=== PATIENT | female | born 1960 | race Hispanic/Latino ===

== ENCOUNTER 2017-12-20 18:51 | Observation (INO) | payer MEDICARE ==
[2017-12-20] MEDS ORDERED: ASPIRIN PO ONE (19:15)
[2017-12-20 19:56] LABS: Basophils # (Auto) 0.1 K/mm3 (0.0-0.1); Basophils % (Auto) 1.2 % (0.0-1.8); Eosinophils # (Auto) 0.1 K/mm3 (0.0-0.4); Eosinophils % (Auto) 2.1 % (0.0-4.3); Hematocrit 42.4 % (30.3-42.9); Hemoglobin 14.1 gm/dl (10.1-14.3); Lymphocytes # (Auto) 2.3 K/mm3 (1.2-5.4); Lymphocytes % (Auto) 33.1 % (13.4-35.0); Mean Corpuscular HGB Conc 33 % (30-34); Mean Corpuscular Hemoglobin 32 pg (28-32); Mean Corpuscular Volume 96 fl (79-97); Monocytes # (Auto) 0.5 K/mm3 (0.0-0.8); Monocytes % (Auto) 7.3 % (0.0-7.3); Platelet Count 210 K/mm3 (140-440); Red Blood Count 4.44 M/mm3 (3.65-5.03)
[2017-12-20 20:00] LABS: BUN/Creatinine Ratio 8; Blood Urea Nitrogen 6 mg/dL (7-17); Calcium 8.9 mg/dL (8.4-10.2); Hemolysis Index 7
--- NOTE | 2017-12-20 20:40 | XRay Report ---
FINAL REPORT EXAM: XR CHEST ROUTINE 2V HISTORY: chest pain,sob COMPARISON: None available. FINDINGS:: Frontal and lateral views of the chest obtained. Cardiac silhouette is within normal limits. Mild linear atelectasis or scarring left midlung. Remaining lungs are clear. No large consolidation or effusion. No pneumothorax. IMPRESSION:: Mild linear atelectasis or scarring left mid lung. Lungs otherwise clear.
--- NOTE | 2017-12-20 20:54 | Emergency Department Report ---
ED Chest Pain HPI - General Chief Complaint: Chest Pain Stated Complaint: CHEST PAIN Time Seen by Provider: 12/20/17 20:28 Source: patient, EMS Mode of arrival: Wheelchair Limitations: No Limitations - History of Present Illness Initial Comments: Patient is 57-year-old female with history of COPD, hypertension, diabetes, coronary artery disease. Patient presented with left-sided chest pain, tightness and heaviness sensation associated with shortness of breath. Patient denied any fever. Patient denied any nausea or vomiting. MD Complaint: chest pain -: Last night Onset: during rest Pain Location: left chest Severity scale (0 -10): 5 Quality: tightness, heaviness Consistency: constant - Related Data Home Medications Medication Instructions Recorded Confirmed Last Taken Albuterol Sulfate [Ventolin HFA] 2 puff IH 4XD PRN 12/31/14 09/10/15 09/09/15 Ipratropium/Albuterol Sulfate 1 ampul IH Q4HRT PRN 12/31/14 09/10/15 1 Day Ago [DUONEB *Not for PRN Use*] ~01/28/15 1 Aspirin [Aspirin BABY CHEW TAB] 81 mg PO QDAY 08/23/15 09/10/15 09/09/15 Ipratropium [Atrovent NEB] 0.5 mg IH Q4HR PRN 08/23/15 09/10/15 Unknown Previous Rx's Medication Instructions Recorded Last Taken Type Topiramate [Topamax] 100 mg PO QID #120 tablet 12/31/14 09/09/15 Rx Warfarin Sodium [Coumadin] 7.5 mg PO 5XW #60 tablet 12/31/14 09/09/15 Rx Morphine ER [Ms Contin ER] 15 mg PO TID PRN #20 tablet 08/23/15 Unknown Rx Morphine [Morphine TAB] 15 mg PO Q24H PRN #3 tablet 09/10/15 Unknown Rx Allergies Allergy/AdvReac Type Severity Reaction Status Date / Time rosuvastatin calcium Allergy Hives Verified 01/28/15 21:20 [From Crestor] acetaminophen AdvReac Severe BREATHING Verified 01/31/15 00:08 DIFFICULTIES,HIVES,ITCHING amoxicillin trihydrate AdvReac Severe BREATHING Verified 01/31/15 00:08 [From Augmentin] DIFFICULTIES,HIVES,ITCHING aspirin [From Fiorinal] AdvReac Severe BREATHING Verified 01/31/15 00:08 DIFFICULTIES,HIVES,ITCHING bupropion HCl AdvReac Severe BREATHING Verified 01/31/15 00:08 [From Wellbutrin] DIFFICULTIES,HIVES,ITCHING butalbital [From Fiorinal] AdvReac Severe BREATHING Verified 01/31/15 00:08 DIFFICULTIES,HIVES,ITCHING caffeine [From Fiorinal] AdvReac Severe BREATHING Verified 01/31/15 00:08 DIFFICULTIES,HIVES,ITCHING carisoprodol AdvReac Severe BREATHING Verified 01/31/15 00:08 [From Soma Compound] DIFFICULTIES,HIVES,ITCHING celecoxib [From Celebrex] AdvReac Severe BREATHING Verified 01/31/15 00:08 DIFFICULTIES,HIVES,ITCHING ciprofloxacin [From Cipro] AdvReac Severe BREATHING Verified 01/31/15 00:08 DIFFICULTIES,HIVES,ITCHING ciprofloxacin HCl AdvReac Severe BREATHING Verified 01/31/15 00:08 [From Cipro] DIFFICULTIES,HIVES,ITCHING codeine AdvReac Severe BREATHING Verified 01/31/15 00:08 DIFFICULTIES,HIVES,ITCHING cyclobenzaprine HCl AdvReac Severe BREATHING Verified 01/31/15 00:08 [From Flexeril] DIFFICULTIES,HIVES,ITCHING diphenhydramine HCl AdvReac Severe BREATHING Verified 01/31/15 00:08 [From Percogesic] DIFFICULTIES,HIVES,ITCHING doxycycline AdvReac Severe BREATHING Verified 01/31/15 00:08 DIFFICULTIES,HIVES,ITCHING erythromycin base AdvReac Severe BREATHING Verified 01/31/15 00:08 [Erythromycin Base] DIFFICULTIES,HIVES,ITCHING fentanyl AdvReac Severe BREATHING Verified 01/31/15 00:08 DIFFICULTIES,HIVES,ITCHING formoterol fumarate AdvReac Severe BREATHING Verified 01/31/15 00:08 [From Dulera] DIFFICULTIES,HIVES,ITCHING hydrocodone bitartrate AdvReac Severe BREATHING Verified 01/31/15 00:08 [From Vicodin] DIFFICULTIES,HIVES,ITCHING hydromorphone HCl AdvReac Severe BREATHING Verified 01/31/15 00:08 [From Dilaudid] DIFFICULTIES,HIVES,ITCHING ibuprofen AdvReac Severe BREATHING Verified 01/31/15 00:08 DIFFICULTIES,HIVES,ITCHING ketorolac tromethamine AdvReac Severe BREATHING Verified 01/31/15 00:08 [From Toradol] DIFFICULTIES,HIVES,ITCHING meperidine HCl [From Demerol] AdvReac Severe BREATHING Verified 01/31/15 00:08 DIFFICULTIES,HIVES,ITCHING methylprednisolone AdvReac Severe BREATHING Verified 01/31/15 00:08 [From Medrol] DIFFICULTIES,HIVES,ITCHING metronidazole [From Flagyl] AdvReac Severe BREATHING Verified 01/31/15 00:08 DIFFICULTIES,HIVES,ITCHING Metronidazole HCl AdvReac Severe BREATHING Verified 01/31/15 00:08 [From Flagyl] DIFFICULTIES,HIVES,ITCHING mometasone furoate AdvReac Severe BREATHING Verified 01/31/15 00:11 [From Dulera] DIFFICULTIES,HIVES,ITCHING nalbuphine HCl [From Nubain] AdvReac Severe BREATHING Verified 01/31/15 00:11 DIFFICULTIES,HIVES,ITCHING naproxen [From Naprosyn] AdvReac Severe BREATHING Verified 01/31/15 00:08 DIFFICULTIES,HIVES,ITCHING oxycodone HCl [From Percocet] AdvReac Severe BREATHING Verified 01/31/15 00:08 DIFFICULTIES,HIVES,ITCHING oxycodone terephthalate AdvReac Severe BREATHING Verified 01/31/15 00:08 [From Percodan] DIFFICULTIES,HIVES,ITCHING pentazocine lactate AdvReac Severe BREATHING Verified 01/31/15 00:08 [From Talwin] DIFFICULTIES,HIVES,ITCHING phenyltoloxamine citrate AdvReac Severe BREATHING Verified 01/31/15 00:08 [From Percogesic] DIFFICULTIES,HIVES,ITCHING potassium clavulanate AdvReac Severe BREATHING Verified 01/31/15 00:08 [From Augmentin] DIFFICULTIES,HIVES,ITCHING propoxyphene HCl AdvReac Severe BREATHING Verified 01/31/15 00:08 [From Darvon] DIFFICULTIES,HIVES,ITCHING propoxyphene napsylate AdvReac Severe BREATHING Verified 01/31/15 00:08 [From Darvocet-N 100] DIFFICULTIES,HIVES,ITCHING sulfamethoxazole AdvReac Severe BREATHING Verified 01/31/15 00:08 [From Bactrim] DIFFICULTIES,HIVES,ITCHING trimethoprim [From Bactrim] AdvReac Severe BREATHING Verified 01/31/15 00:08 DIFFICULTIES,HIVES,ITCHING Heart Score - HEART Score History: Moderately suspicious EKG: Non-specific Age: 45-65 Risk factors: 1-2 risk factors Troponin: < normal limit HEART Score: 4 - Critical Actions Critical Actions: 4-6 pts:12-16.6% risk of adverse cardiac event. Should be admitted ED Review of Systems ROS: Stated complaint: CHEST PAIN Other details as noted in HPI Comment: All other systems reviewed and negative Constitutional: denies: chills, fever Respiratory: shortness of breath. denies: cough, orthopnea, SOB with exertion, SOB at rest Cardiovascular: chest pain, dyspnea on exertion. denies: palpitations Gastrointestinal: denies: abdominal pain, nausea, vomiting, diarrhea, constipation Genitourinary: denies: urgency, dysuria, frequency Neurological: denies: headache, weakness Psychiatric: denies: depression ED Past Medical Hx - Past Medical History Hx Hypertension: Yes Hx CVA: Yes (tia) Hx Congestive Heart Failure: No Hx Diabetes: Yes Hx Pulmonary Embolism: No Hx Liver Disease: No Hx Renal Disease: No Hx Sickle Cell Disease: No Hx Arthritis: No Hx Seizures: Yes Hx Kidney Stones: No Hx Asthma: Yes Hx COPD: Yes Hx Tuberculosis: No Hx Dementia: No Hx HIV: No Additional medical history: angina - Surgical History Hx Open Heart Surgery: No Hx Cholecystectomy: Yes Hx Appendectomy: No Hx Breast Surgery: No Additional Surgical History: hysterectomy, left arm - Social History Smoking Status: Former Smoker Substance Use Type: None - Medications Home Medications: Home Medications Medication Instructions Recorded Confirmed Last Taken Type Albuterol Sulfate [Ventolin HFA] 2 puff IH 4XD PRN 12/31/14 09/10/15 09/09/15 History Ipratropium/Albuterol Sulfate 1 ampul IH Q4HRT PRN 12/31/14 09/10/15 1 Day Ago History [DUONEB *Not for PRN Use*] ~01/28/15 1 Topiramate [Topamax] 100 mg PO QID #120 tablet 12/31/14 09/10/15 09/09/15 Rx Warfarin Sodium [Coumadin] 7.5 mg PO 5XW #60 tablet 12/31/14 09/10/15 09/09/15 Rx Aspirin [Aspirin BABY CHEW TAB] 81 mg PO QDAY 08/23/15 09/10/15 09/09/15 History Ipratropium [Atrovent NEB] 0.5 mg IH Q4HR PRN 08/23/15 09/10/15 Unknown History Morphine ER [Ms Contin ER] 15 mg PO TID PRN #20 tablet 08/23/15 09/10/15 Unknown Rx Morphine [Morphine TAB] 15 mg PO Q24H PRN #3 tablet 09/10/15 Unknown Rx ED Physical Exam - General Limitations: No Limitations General appearance: alert, in no apparent distress - Head Head exam: Present: atraumatic, normocephalic, normal inspection - Eye Eye exam: Present: normal appearance, PERRL - ENT ENT exam: Present: normal exam, normal orophraynx, mucous membranes moist - Neck Neck exam: Present: normal inspection, full ROM. Absent: tenderness, meningismus, lymphadenopathy - Respiratory Respiratory exam: Present: normal lung sounds bilaterally, decreased breath sounds. Absent: respiratory distress, wheezes, rales, rhonchi, chest wall tenderness, accessory muscle use, prolonged expiratory - Cardiovascular Cardiovascular Exam: Present: regular rate, normal rhythm, normal heart sounds - GI/Abdominal GI/Abdominal exam: Present: soft, normal bowel sounds. Absent: distended, tenderness, guarding, rebound, rigid, organomegaly, mass, bruit, pulsatile mass , hernia - Extremities Exam Extremities exam: Present: normal inspection, full ROM, normal capillary refill - Back Exam Back exam: Present: normal inspection, full ROM. Absent: tenderness, CVA tenderness (R), CVA tenderness (L) - Neurological Exam Neurological exam: Present: alert, oriented X3, CN II-XII intact, normal gait - Skin Skin exam: Present: warm, intact, normal color ED Course Vital Signs 12/20/17 12/20/17 12/20/17 19:11 20:30 20:41 Temperature 99.1 F 99.4 F Pulse Rate 104 H 103 H 100 H Respiratory 20 21 Rate Blood Pressure 154/94 O2 Sat by Pulse 91 Oximetry 12/20/17 12/20/17 20:46 21:00 Temperature Pulse Rate 96 H 98 H Respiratory 24 25 H Rate Blood Pressure 138/81 133/78 O2 Sat by Pulse 92 93 Oximetry MICHELLE score - Michelle Score Age > 65: (0) No Aspirin use within the Past 7 Days: (0) No 3 or more CAD Risk Factors: (1) Yes 2 or more Angina events in past 24 hrs: (0) No Known CAD with more than 50% Stenosis: (0) No Elevated Cardiac Markers: (0) No ST Deviation Greater than 0.5mm: (0) No MICHELLE Score: 1 ED Medical Decision Making - Lab Data Result diagrams: 12/20/17 19:23 12/20/17 19:23 - EKG Data -: EKG Interpreted by Me EKG shows normal: sinus rhythm Rate: tachycardia - EKG Data Interpretation: no acute changes - Radiology Data Radiology results: report reviewed - Medical Decision Making I discussed the patient is Dr. Paul, he agreed to admit the patient to his service. Critical care attestation.: If time is entered above; I have spent that time in minutes in the direct care of this critically ill patient, excluding procedure time. ED Disposition Clinical Impression: Chest pain Disposition: DC-09 OP ADMIT IP TO THIS HOSP Is pt being admited?: Yes Condition: Stable Instructions: Chest Pain (ED)
[2017-12-20] MEDS ORDERED: MORPHINE IV PRN (21:48)
[2017-12-20] MEDS ORDERED: SODIUM CHLORIDE FLUSH SYRINGE 10 ML IV PRN (21:48)
[2017-12-20] MEDS ORDERED: NITROSTAT SL PRN (21:48)
[2017-12-20] MEDS ORDERED: ZOFRAN IV PRN (21:52)
[2017-12-20] MEDS ORDERED: HEPARIN SUB-Q SCH (22:00)
[2017-12-20] MEDS ORDERED: K-DUR PO ONE (22:09)
[2017-12-20 22:41] LABS: BUN/Creatinine Ratio 8; Blood Urea Nitrogen 6 mg/dL (7-17); Calcium 8.7 mg/dL (8.4-10.2); Hemolysis Index 3
[2017-12-20 22:57] LABS: INR 0.79 (0.87-1.13)
--- NOTE | 2017-12-21 01:48 | History and Physical Report ---
CHIEF COMPLAINT: Chest pain. HISTORY OF PRESENT ILLNESS: The patient is a 57-year-old female who started having burning type of chest pain at home that eventually turned into crushing pain involving the precordial and retrosternal area that was associated with shortness of breath, nausea and dizziness. There was no history of fever, no history of cough. The patient called 911 and was told to take aspirin and she said she took 2 tablets of baby aspirin, and subsequently presented to the Emergency Room. PAST MEDICAL HISTORY: Pertinent for COPD, hypertension, diabetes mellitus, coronary artery disease, TIA. Also the patient has seizure. PAST SURGICAL HISTORY: Pertinent for cholecystectomy, hysterectomy, and left arm surgery. FAMILY HISTORY: Pertinent for valvular heart disease in parents. SOCIAL HISTORY: The patient lives with family. Does not smoke, does not drink alcohol and does not use illicit drugs. MEDICATIONS: The patient is on albuterol sulfate 2 puffs inhalation 4 times daily. Also, the patient is on DuoNeb 1 amp every 4 hours as needed for shortness of breath. The patient is on Topamax 100 mg by mouth q.i.d., warfarin 7.5 mg by mouth 5 times a week, aspirin 81 mg daily, ipratropium nebulizer 0.5 mg every 4 hours as needed for shortness of breath, morphine extended release, MS Contin 15 mg by mouth 3 times daily as needed for pain. ALLERGIES: THE PATIENT IS ALLERGIC TO CRESTOR, ACETAMINOPHEN, AMOXICILLIN TRIHYDRATE. REVIEW OF SYSTEMS: CONSTITUTIONAL: There is no fever, no chills, no diaphoresis. HEENT: There is no headache or sore throat. CARDIOVASCULAR: There is chest pain, but no orthopnea. RESPIRATORY: Shortness of breath is present and there is no cough. GASTROINTESTINAL: There is nausea, no vomiting, no abdominal pain, diarrhea or constipation. NEUROLOGIC: There is dizziness, no altered mental status. MUSCULOSKELETAL: There is no joint pain or swelling. DERMATOLOGICAL: There is no skin rash or itching. GENITOURINARY: There is no dysuria, hematuria, or flank pain. Rest of system review is normal. PHYSICAL EXAMINATION: GENERAL: At the time of exam, the patient was found to be alert, oriented x 3 and not in acute distress. VITAL SIGNS: Shows normal temperature with pulse of 96, respirations 24, blood pressure 138/81, O2 sat of 92% on room air. HEENT: Shows pupils to be equal, round, reactive to light and accommodation. Extraocular muscles are intact. NECK: Full with no JVD or carotid bruit. CARDIOVASCULAR: Show normal first and second heart sounds with no gallops or murmur. RESPIRATORY: Shows good air entry on both sides of the lungs with no abnormal breath sounds. GASTROINTESTINAL: Show abdomen to be full, soft, nontender with no organomegaly or rigidity. NEUROLOGICAL: The shows no focal deficits. MUSCULOSKELETAL: Show no joint swelling or tenderness. DERMATOLOGICAL: Shows no skin rash. GENITOURINARY: Show no costovertebral angle tenderness. PERTINENT LABORATORY DATA AND IMAGING STUDIES: The patient had a chest x-ray done that shows mild linear atelectasis or scarring of the left mid lung. Lab results, the patient had following labs done, CBC came back unremarkable. Chemistry shows slight decrease in potassium of 3.5 with unremarkable renal function. Rest of chemistry was unremarkable. Coagulation studies were not done. Cardiac enzyme shows normal troponin levels. DIAGNOSES: 1. Chest pain. 2. Hypokalemia. PLAN: The patient will be admitted to medical floor telemetry using chest pain pathway. The patient will have troponin level checked q. 6 hours x 2 more levels. The patient will remain n.p.o. for Lexiscan nuclear stress test in the morning. The patient will be on nitro paste 1 inch to anterior chest wall t.i.d. and will be on sublingual nitroglycerin for breakthrough chest pain. The patient will be on enteric-coated aspirin 325 mg by mouth daily and the patient will be on IV morphine 2 mg every 5 minutes as needed for pain and also will be on IV Zofran 4 mg every 8 hours as needed for nausea and vomiting. The patient will remain n.p.o. for stress test in the morning and will be on oxygen via nasal cannula per chest pain protocol. The patient was on Coumadin for DVT prophylaxis at this point will be through sequential compressive device ____. JOB# [id number] OCN/NTS
[2017-12-21] MEDS: NITRO-BID 2% TP SCH ×2 (06:15→12:05)
[2017-12-21] MEDS ORDERED: LEXISCAN IV ONE ×2 (08:06→08:14)
--- NOTE | 2017-12-21 08:37 | Discharge Summary ---
Providers - Providers Date of Admission: 12/20/17 21:47 Date of discharge: 12/21/17 Attending physician: AQUILES JUAREZ 12/20/17 Consult to Cardiac Rehabilitation [CONS] Routine Reason For Exam: Phase I Primary care physician: VINITA PHAM Hospitalization Reason for admission: cp Condition: Stable Hospital course: Patient is 57-year-old female with history of COPD, hypertension, diabetes, coronary artery disease. Patient presented with left-sided chest pain, tightness and heaviness sensation associated with shortness of breath. Patient denied any fever. Patient denied any nausea or vomiting. The patient underwent evaluation with Lexiscan that was found to be negative for ischemia Etiology chest pain is most likely secondary to GERD. Dedicated discharge time 32 minutes. Disposition: - TO HOME OR SELFCARE Time spent for discharge: 32 Core Measure Documentation - Palliative Care Palliative Care/ Comfort Measures: Not Applicable - Core Measures Any of the following diagnoses?: none Exam - Constitutional Vitals: Temp Pulse Resp BP Pulse Ox 98.7 F 87 19 117/67 93 12/21/17 05:36 12/21/17 05:36 12/21/17 01:45 12/21/17 05:36 12/21/17 01:45 General appearance: Present: no acute distress, well-nourished - EENT Eyes: Present: PERRL ENT: hearing intact, clear oral mucosa - Neck Neck: Present: supple, normal ROM - Respiratory Respiratory effort: normal Respiratory: bilateral: CTA - Cardiovascular Heart Sounds: Present: S1 & S2. Absent: rub, click - Extremities Extremities: pulses symmetrical, No edema Peripheral Pulses: within normal limits - Abdominal General gastrointestinal: Present: soft, non-tender, non-distended, normal bowel sounds Female genitourinary: Present: normal - Integumentary Integumentary: Present: clear, warm, dry - Musculoskeletal Musculoskeletal: gait normal, strength equal bilaterally - Psychiatric Psychiatric: appropriate mood/affect, intact judgment & insight - Neurologic Neurologic: CNII-XII intact, moves all extremities Plan Activity: no restrictions Weight Bearing Status: Full Weight Bearing Diet: diabetic Follow up with: VINITA PHAM MD [Primary Care Provider] - 3-5 Days Prescriptions: Clopidogrel [Plavix] 75 mg PO QDAY #30 tablet Furosemide [Lasix] 20 mg PO DAILY #30 tablet Ipratropium [Atrovent NEB] 0.5 mg IH Q4HR PRN #30 nebu PRN Reason: Dyspnea Topiramate [Topamax] 200 mg PO BID #60 tablet
[2017-12-21] MEDS ORDERED: ECOTRIN PO SCH (10:00)
[2017-12-21 12:45] VITALS: BP 120/73
--- NOTE | 2017-12-21 16:52 | Treadmill Report ---
Resting images revealed homogeneous radioisotope activity throughout the myocardium. On post-Lexiscan, again similar uptake is noted. On gated scan, ejection fraction was noted to be 68% without any wall motion abnormality. Transient ischemic dilatation was top normal. IMPRESSION: This test is negative for ischemia, left ventricular ejection fraction 68%. JOB# [id number] KR/NTS
== END 2017-12-21 16:45 | disposition home or self-care (01) ==
LOC: ED 18:51 → INTOOBSV 21:47 → 4A 21:47
PROVIDERS: ADMIT Internal Medicine; ATTEND Hospitalist
DX: E87.6 Hypokalemia (principal); R07.89 Other chest pain; K21.9 Gastro-esophageal reflux disease without esophagitis; J44.9 Chronic obstructive pulmonary disease, unspecified; I10 Essential (primary) hypertension; I25.10 Atherosclerotic heart disease of native coronary artery without angina pectoris; E11.9 Type 2 diabetes mellitus without complications; Z79.82 Long term (current) use of aspirin; Z86.73 Personal history of transient ischemic attack (TIA), and cerebral infarction without residual deficits; Z90.49 Acquired absence of other specified parts of digestive tract; Z90.710 Acquired absence of both cervix and uterus
CPT/HCPCS: 36415; 71046; 78452; 80048; 84484; 85025; 85610; 93005; 93010; 93017; 99285; A9502; G0378; J2785

== ENCOUNTER 2018-07-09 11:00 | Outpatient (CLI) | payer MEDICARE ==
--- NOTE | 2018-07-09 12:47 | Ultrasound Report ---
ULTRASOUND LEFT NECK: 07/09/18 CLINICAL: Left supraclavicular fullness. FINDINGS: Ultrasound of the left supraclavicular area demonstrated normal structures with no mass, cyst or fluid collection. A single small lymph node with central fat and benign morphology measures 8 x 3 x 8 mm. IMPRESSION: A benign 8mm left supraclavicular lymph node and no other significant finding.
== END 2018-07-09 11:01 | disposition home or self-care (01) ==
LOC: SPVWC 11:00
PROVIDERS: ATTEND Internal Medicine
DX: R59.9 Enlarged lymph nodes, unspecified (principal); I10 Essential (primary) hypertension; J44.9 Chronic obstructive pulmonary disease, unspecified; Z86.73 Personal history of transient ischemic attack (TIA), and cerebral infarction without residual deficits; Z87.891 Personal history of nicotine dependence; Z90.49 Acquired absence of other specified parts of digestive tract; Z90.710 Acquired absence of both cervix and uterus
CPT/HCPCS: 76536